=== PATIENT | female | born 1955 | race Caucasian/White ===

== ENCOUNTER 2017-05-17 21:31 | Emergency (ER) | payer BC ==
[~2017-05-17] VITALS: Ht 167.6 cm; Wt 77.3 kg
[~2017-05-17 21:31] MED LIST: CALCIUM CITRAT200 MG PO; CENTRUM1 TAB PO; IBUPROFEN 200200 MG PO; NORCO 325 MG-51 TAB PO; PERCOCET 325 MG1 TA2 PO; PRILOSEC10 MG PO; VITAMIN B COMPL1 T16 PO; VITAMIN C500 MG PO; VITAMIN D 400400 IU PO; ZANTAC 7575 MG PO
[2017-05-17 21:34] VITALS: BP 176/106; TEMP 97.2
[2017-05-17 22:16] LABS: COLLECTION METHOD CLEAN CATCH
[2017-05-17 22:18] LABS: BASO % 0.4 % (0.0-2.0); EOS # 0.1 (0.0-0.7); EOS % 1.5 % (0-4.0); GRAN # 3.5 (1.4-6.5); GRAN % 68.5 % (42.2-75.2); HEMATOCRIT 42.2 % (37.0-47.0); HEMOGLOBIN 14.2 g/dl (12.5-16.0); LYMPH % 19.9 % (20.0-51.0); MEAN CELL VOLUME 92 fl (80.0-100.0); MEAN CORPUSCULAR HEMOGLOBIN 31 pg (27.0-31.0); MEAN CORPUSCULAR HGB CONC 34 g/dl (33.0-37.0); MONO # 0.5 (0.1-0.6); MONO % 9.5 % (1.7-9.3); PLATELET COUNT 229 K/mm3 (130-400); RED BLOOD COUNT 4.61 M/mm3 (4.10-5.30); REDCELL DISTRIBUTION WIDTH-CV 13.3 % (11.5-14.5)
[2017-05-17 22:22] LABS: PH 6 (5-8); SQUAMOUS EPITHELIAL None Seen /hpf; URINE APPEARANCE Clear; URINE BACTERIA Rare /hpf; URINE BILIRUBIN Negative (NEGATIVE); URINE BLOOD Negative (NEGATIVE); URINE COLOR Yellow; URINE GLUCOSE Negative (NEGATIVE); URINE KETONE Negative (NEGATIVE); URINE LEUKOCYTE ESTERASE Trace (NEGATIVE); URINE NITRATE Negative (NEGATIVE); URINE PROTEIN(semi-quant) Negative (NEGATIVE); URINE RBC 0-2 /hpf; URINE UROBILINOGEN Negative (NEGATIVE)
[2017-05-17 22:27] LABS: ALBUMIN 5.1 gm/dL (3.5-5.0); BILIRUBIN,TOTAL 0.5 mg/dL (0.0-1.0); CALCIUM 9.7 mg/dL (8.4-10.2); CREATININE, serum 0.78 mg/dL (0.52-1.25); POTASSIUM 3.9 mmol/L (3.4-5.0); TOTAL PROTEIN 8.1 gm/dL (6.4-8.2)
[2017-05-17] MEDS ORDERED: NORCO 325 MG-51 TAB PO (23:29)
[2017-05-17] MEDS ORDERED: ZOFRAN 4MG T4 MG/TAB PO (23:29)
[2017-05-17 23:47] VITALS: PULSE 80
== END 2017-05-17 23:47 | disposition home or self-care (01) ==
LOC: COL.ER 21:31
PROVIDERS: Emergency Medicine
DX: K42.9 Umbilical hernia without obstruction or gangrene (principal); K21.9 Gastro-esophageal reflux disease without esophagitis; Z98.84 Bariatric surgery status; Z98.890 Other specified postprocedural states
CPT/HCPCS: J2765; J3010; J7030; Q9967

== ENCOUNTER 2018-02-17 13:31 | Emergency (ER) | payer MEDICARE, OTHER ==
[~2018-02-17] VITALS: Ht 170.2 cm; Wt 77.3 kg
[~2018-02-17 13:31] MED LIST changes: +ZOFRAN 4MG T4 MG/TAB PO
[2018-02-17 13:35] VITALS: TEMP 98.2
[2018-02-17] MEDS ORDERED: CLARITIN 1010 MG/TAB PO (13:46)
[2018-02-17] MEDS ORDERED: MUCINEX D1 TER PO (13:46)
[2018-02-17 14:07] LABS: COLLECTION METHOD CLEAN CATCH
[2018-02-17 14:22] LABS: MUCOUS Present /lpf; PH 7 (5-8); SQUAMOUS EPITHELIAL 0-2 /hpf; URINE APPEARANCE Clear; URINE BACTERIA None Seen /hpf; URINE BILIRUBIN Negative (NEGATIVE); URINE BLOOD Negative (NEGATIVE); URINE COLOR Yellow; URINE GLUCOSE Negative (NEGATIVE); URINE KETONE Negative (NEGATIVE); URINE LEUKOCYTE ESTERASE Negative (NEGATIVE); URINE NITRATE Negative (NEGATIVE); URINE PROTEIN(semi-quant) Negative (NEGATIVE); URINE RBC None Seen /hpf
[2018-02-17 14:25] LABS: BASO % 0.3 % (0.0-2.0); EOS # 0.1 (0.0-0.7); EOS % 1.9 % (0-4.0); GRAN # 4.8 (1.4-6.5); GRAN % 77.3 % (42.2-75.2); HEMOGLOBIN 14.5 g/dl (12.5-16.0); LYMPH # 0.8 (1.2-3.4); LYMPH % 12.7 % (20.0-51.0); MEAN CELL VOLUME 94 fl (80.0-100.0); MEAN CORPUSCULAR HEMOGLOBIN 31 pg (27.0-31.0); MEAN CORPUSCULAR HGB CONC 33 g/dl (33.0-37.0); MEAN PLATELET VOLUME 9.7 fl (7.4-10.4); MONO # 0.5 (0.1-0.6); MONO % 7.6 % (1.7-9.3); PLATELET COUNT 247 K/mm3 (130-400); RED BLOOD COUNT 4.68 M/mm3 (4.10-5.30); REDCELL DISTRIBUTION WIDTH-CV 13.3 % (11.5-14.5)
[2018-02-17 14:36] LABS: ALANINE AMINOTRANSFERASE 32 U/L (9-52); ALBUMIN 4.4 gm/dL (3.5-5.0); ALKALINE PHOSPHATASE 51 U/L (50-136); ANION GAP 7 mmol/L (7-16); AST,SGOT 32 U/L (15-37); BILIRUBIN,TOTAL 0.4 mg/dL (0.0-1.0); BLOOD UREA NITROGEN 16 mg/dL (7-17); CALCIUM 9.3 mg/dL (8.4-10.2); CARBON DIOXIDE 25 mmol/L (22-30); CHLORIDE 110 mmol/L (98-107); CREATININE, serum 0.84 mg/dL (0.52-1.25); GLUCOSE 104 mg/dL (74-106); MAGNESIUM 1.9 mg/dL (1.6-2.3); PHOSPHOROUS 3.2 mg/dL (2.5-4.5); POTASSIUM 4.4 mmol/L (3.4-5.0); SODIUM 141 mmol/L (137-145); TOTAL PROTEIN 7.3 gm/dL (6.4-8.2)
[2018-02-17 14:49] LABS: TROPONIN-I < 0.012 ng/mL (0.000-0.034)
[2018-02-17] MEDS ORDERED: BONINE25 MG PO (15:54)
[2018-02-17 16:16] VITALS: BP 159/90; PULSE 62
== END 2018-02-17 16:17 | disposition home or self-care (01) ==
LOC: COL.ER 13:31
PROVIDERS: Emergency Medicine
DX: R42 Dizziness and giddiness (principal)
CPT/HCPCS: J2550; J7030

== ENCOUNTER → 2018-04-16 | Outpatient (CLI) | payer MEDICARE, OTHER ==
[~2018-04-16] MED LIST changes: +BONINE25 MG PO; +CLARITIN 1010 MG/TAB PO; +MUCINEX D1 TER PO
== END ==
LOC: MC.RAD 09:30
DX: Z12.31 Encounter for screening mammogram for malignant neoplasm of breast (principal)

== ENCOUNTER → 2019-04-24 | Outpatient (CLI) | payer MEDICARE, OTHER | LOC: MC.RAD 09:30 | DX: Z12.31 Encounter for screening mammogram for malignant neoplasm of breast (principal) ==

== ENCOUNTER → 2020-06-23 | Outpatient (CLI) | payer MEDICARE, OTHER | LOC: MC.RAD 11:10 | DX: Z12.31 Encounter for screening mammogram for malignant neoplasm of breast (principal) ==

== ENCOUNTER 2021-05-03 13:48 | Observation (INO) | payer MEDICARE, OTHER ==
[~2021-05-03] VITALS: Ht 167.6 cm; Wt 79.5 kg
[2021-05-03] VITALS (7 sets, daily range): BP systolic 120–148; BP diastolic 63–87; PULSE 65–73
[2021-05-03 14:28] LABS: BASO % 0.4 % (0.0-2.0); EOS % 0.6 % (0.0-4.0); GRAN # 3.9 K/mm3 (1.4-6.5); GRAN % 79.5 % (42.2-75.2); HEMATOCRIT 40.1 % (37.0-47.0); LYMPH # 0.6 K/mm3 (1.2-3.4); LYMPH % 12.8 % (20.0-51.0); MEAN CELL VOLUME 93 fl (80.0-100.0); MEAN CORPUSCULAR HEMOGLOBIN 30 pg (27-31); MEAN CORPUSCULAR HGB CONC 32 g/dl (33.0-37.0); MEAN PLATELET VOLUME 9.5 fl (7.4-10.4); MONO # 0.3 K/mm3 (0.1-0.6); MONO % 6.1 % (1.7-9.3); PLATELET COUNT 233 K/mm3 (130-400); RED BLOOD COUNT 4.31 M/mm3 (4.10-5.30); REDCELL DISTRIBUTION WIDTH-CV 13.5 % (11.5-14.5)
[2021-05-03 14:48] LABS: ALBUMIN 4.2 gm/dL (3.4-4.8); BILIRUBIN,TOTAL 0.5 mg/dL (0.2-1.2); C-REACTIVE PROTEIN 0.1 mg/dL (0.00-0.50); CALCIUM 9.1 mg/dL (8.4-10.2); CREATININE, serum 0.78 mg/dL (0.57-1.11); TOTAL PROTEIN 6.9 gm/dL (6.2-8.1)
[2021-05-03] MEDS ORDERED: LIPITOR 40MG TA40 MG PO (17:33)
[2021-05-03] MEDS ORDERED: PRINIVIL10 MG PO (17:33)
[2021-05-03] MEDS ORDERED: PROTONIX 40MG T40 MG PO (17:34)
--- NOTE | 2021-05-03 20:15 | NUR ---
PT ARRIVES VIA BED FROM PACU TO ROOM 330. PTS SPOUSE IN ROOM. PT IS ALERT, DROWSY. IVF TO LEFT WRIST. ROBOTIC SITES X4 TO ABD WITH BANDAID DRSGS.
[2021-05-04] VITALS (8 sets, daily range): BP systolic 109–134; BP diastolic 51–76; PULSE 66–79; TEMP 97.9–98.6
--- NOTE | 2021-05-04 00:38 | NUR ---
PATIENT IS ADMITTED POST ROBOTIC INCISIONAL HERNIA REPAIR WITH FOUR LAP SITES COVERED WITH BAND-AIDS. POST OP CHECKS AND VS COMPLETED. PATIENT IS ALERT AND ORIENTED. LUNGS CTA. BOWEL SOUNDS HYPOACTIVE. PATIENT COMPLAINS OF PAIN AND REQUESTS PAIN MEDICATION. PATIENT GIVEN EVENING MEDICATIONS AND ORIENTED TO ROOM. PATIENT IS RESTING IN BED WITH CALL LIGHT WITHIN REACH.
--- NOTE | 2021-05-04 02:19 | NUR ---
PATIENT C/O PAIN AFTER AMBULATING TO BATHROOM. RATES PAIN 4-5/10 AND REQUESTED PAIN MEDICATION. WILL ASSESS PAIN AND MONITOR.
--- NOTE | 2021-05-04 08:26 | NUR ---
Pt doing well this morning. She is getting up independently. She is tolerating clear liquids with no complaints of N/V. INT'd her IV per physician order. Pt rating pain 2/10 even with movement, deneis the need for pain medication. Call light within reach, will continue to monitor
--- NOTE | 2021-05-04 09:34 | NUR ---
Social Work student met with patient to discuss discharge planning. Patient lives in [place] with her , Barry (ph#[phone]). Patient's PCP is Dr. Danny Bahena, and she receives her medications from [facility] with no complications. Patient does not utilize any DME at home. Patient is also independent with her ADL's. Patient has not yet established a DPOA-HC, but has stated they are not interested in completing one at this time. Patient is , and has three kids over 18: Lory (ph#[phone]), Phillip (ph#[phone]), and Kizzy (ph#[phone]). Discharge plan: Home
--- NOTE | 2021-05-04 09:58 | NUR ---
Initial visit; Patient doing well, thanked Advertising Space Clerk for looking in on her and visiting. Advertising Space Clerk wished patient well.
--- NOTE | 2021-05-04 12:40 | NUR ---
Pt tolerated a general lunch. She had soup and a salad. Pt reports no N/V. Rating pain 3/10, schedule Tylenol given. Pt denies any other needs, call light within reach
[2021-05-04] MEDS ORDERED: ROXICODONE 55 MG/TAB PO (15:40)
--- NOTE | 2021-05-04 17:26 | NUR ---
Reviewed discharged instructions with pt with spouse present to include follow up appointment and prescription. INT removed from left wrist and pt escorted via wheelchair.
== END 2021-05-04 17:27 | disposition home or self-care (01) ==
LOC: COL.ER 13:48 → SURG 17:12
PROVIDERS: Physician Assistant; ADMIT Surgery
DX: K43.0 Incisional hernia with obstruction, without gangrene (principal)
CPT/HCPCS: C1781; G0378; J0330; J0690; J1100; J1885; J2270; J2405; J2704; J3010; J3480; J7030; Q9967

== ENCOUNTER → 2021-08-02 | Outpatient (CLI) | payer MEDICARE, OTHER ==
[~2021-08-02] MED LIST changes: +LIPITOR 40MG TA40 MG PO; +PRINIVIL10 MG PO; +PROTONIX 40MG T40 MG PO; +ROXICODONE 55 MG/TAB PO
== END ==
LOC: MC.RAD 10:26
DX: Z12.31 Encounter for screening mammogram for malignant neoplasm of breast (principal)

== ENCOUNTER → 2023-12-25 | Outpatient (CLI) | payer MEDICARE, OTHER | LOC: MC.RAD 10:14 | DX: Z12.31 Encounter for screening mammogram for malignant neoplasm of breast (principal) ==